=== PATIENT | male | born 1990 | race Hispanic/Latino ===

== ENCOUNTER 2023-12-20 18:18 | Emergency (ER) | payer SELFPAY ==
[2023-12-20] MEDS ORDERED: Naproxen 500 MG TAB ONE (19:01)
== END 2023-12-20 20:00 | disposition home or self-care (01) ==
LOC: NAV ERS 18:18
DX: S06.0X0A Concussion without loss of consciousness, initial encounter (principal); S00.93XA Contusion of unspecified part of head, initial encounter; R03.0 Elevated blood-pressure reading, without diagnosis of hypertension; F17.200 Nicotine dependence, unspecified, uncomplicated; V89.2XXA Person injured in unspecified motor-vehicle accident, traffic, initial encounter
CPT/HCPCS: 70450